=== PATIENT | female | born 1960 | race Caucasian/White ===

== ENCOUNTER → 2019-09-16 07:49 | Outpatient (BNVA) | payer MEDICARE, MEDICAID, SELFPAY | PROVIDERS: PCP Family Medicine; Visit Provider Anesthesiology | DX: M54.40 Lumbago with sciatica, unspecified side (principal); F17.210 Nicotine dependence, cigarettes, uncomplicated; Z79.891 Long term (current) use of opiate analgesic | CPT/HCPCS: 99213; 99214 ==

== ENCOUNTER → 2019-10-15 10:37 | Outpatient (BNVA) | payer MEDICARE, MEDICAID, SELFPAY | PROVIDERS: PCP Family Medicine; Visit Provider Anesthesiology | DX: G89.29 Other chronic pain (principal); M54.40 Lumbago with sciatica, unspecified side; M79.651 Pain in right thigh; M79.652 Pain in left thigh; F17.210 Nicotine dependence, cigarettes, uncomplicated; Z79.891 Long term (current) use of opiate analgesic | CPT/HCPCS: 99214 ==

== ENCOUNTER → 2019-12-12 10:44 | Outpatient (BNVA) | payer OTHER, MEDICAID, SELFPAY | PROVIDERS: PCP Family Medicine; Visit Provider Nurse Practitioner | DX: Z76.89 Persons encountering health services in other specified circumstances (principal) ==

== ENCOUNTER → 2020-02-11 10:00 | Outpatient (BNVA) | payer OTHER, MEDICAID, SELFPAY | PROVIDERS: PCP Family Medicine; Visit Provider Anesthesiology | DX: M54.41 Lumbago with sciatica, right side (principal); M54.42 Lumbago with sciatica, left side; F17.210 Nicotine dependence, cigarettes, uncomplicated; Z79.891 Long term (current) use of opiate analgesic; Z71.6 Tobacco abuse counseling | CPT/HCPCS: 99214 ==

== ENCOUNTER → 2021-12-06 13:30 | Outpatient (BNVA) | payer OTHER, MEDICAID, SELFPAY | PROVIDERS: PCP Family Medicine; Visit Provider Internal Medicine | DX: Z01.818 Encounter for other preprocedural examination (principal); K92.1 Melena; Z20.822 Contact with and (suspected) exposure to COVID-19 | CPT/HCPCS: 87635 ==

== ENCOUNTER 2021-12-12 06:15 | Day surgery (SDC) | payer OTHER, MEDICAID, SELFPAY ==
[2021-12-08 14:23] VITALS: BMI 23.2
[2021-12-12 06:41] VITALS: BP 135/99; PULSE 110; RESP 20; TEMP 36.1; O2SAT 96
[2021-12-12] MEDS: sodium chloride 0.9% 1,000 ML 30 ML IV (06:46)
--- NOTE | 2021-12-12 06:59 | ANES.PREANE2 ---
Pre-Anesthetic Assessment Height/Weight: Height 1.55 m Weight 55.792 kg Temp Pulse Resp BP Pulse Ox 97 F L 110 H 20 H 135/99 96 12/12/21 06:41 12/12/21 06:41 12/12/21 06:41 12/12/21 06:41 12/12/21 06:41 Preop Diagnosis: Nausea. Hematochezia. Post prandial diarrhea. Operation Date: 12/12/21 07:30 Proposed Procedures p [id number]/[id number]/k92.1(Not Applicable) - Scout Anderson MD s ColonoscOPY(Not Applicable) - Scout Anderson MD Familial anesthetic complications: none Was Clonidine taken within 24 hours: N/A Last intake: Intake Last Liquid Date 12/11/21 Last Liquid Time 22:00 Last Solid Date 12/10/21 Last Solid Time 12:00 Social Tobacco and No alcohol 0.5 pack(s) per day Exam alert, oriented x 3, clear to auscultation bilaterally and regular rate & rhythm Airway Submandibular: within normal limits Cervical ROM: within normal limits Mallampati: Class I Dentition: false Pulmonary Chronic Obstructive Pulmonary Disease, Cough and Shortness of Breath CV/HEM Hypertension and Myocardial Infarction None reported Hepatic None reported GI Gastroesophageal Reflux Disease Metabolic Hyperlipidemia Musc/skel Lower Back Pain, Osteoarthritis/DJD and Weakness Neuropsych Depression and Transient Ischemic Attack Anesthetic Plan ASA status: 3 Anesthesia: MAC Risk of > 500 ml blood loss (7ml/kg in children): No Medications/Allergies Home Medications Medication Instructions Recorded Confirmed Last Taken Type albuterol sulfate 2.5 mg INHALATION Q6H 09/05/19 12/08/21 12/10/21 History bupropion HCl 300 mg 24 hr tablet, 300 mg PO QAM 09/05/19 12/08/21 12/10/21 History extended release cyclobenzaprine 10 mg tablet 10 mg PO .HS tab 09/05/19 12/08/21 12/10/21 History fluticasone propionate 50 1 spray INTRANASAL BID PRN 09/05/19 12/08/21 12/10/21 History mcg/actuation nasal spray,suspension gabapentin 800 mg tablet 800 mg PO QID 30 Days #120 tab 12/12/19 12/08/21 12/10/21 Rx lorazepam 0.5 mg tablet 0.5 mg PO DAILY PRN 02/11/20 12/08/21 12/10/21 History ibuprofen 800 mg tablet 800 mg PO TID 11/14/21 12/08/21 12/10/21 History metoprolol tartrate 25 mg tablet 50 mg PO DAILY tab 11/14/21 12/12/21 12/11/21 09:00 History tramadol 50 mg tablet 50 mg PO BID PRN 11/14/21 12/08/21 12/11/21 History Allergies Allergy/AdvReac Type Severity Reaction Status Date / Time Penicillins Allergy Unknown Verified 11/24/21 13:23 aspirin AdvReac ABDOMINAL Verified 11/24/21 13:23 PAIN baclofen AdvReac DIZZINESS, Verified 11/24/21 13:23 NAUSEA, SHAKING, VOMITTING Sulfa (Sulfonamide AdvReac UNKNOWN Verified 11/24/21 13:23 Antibiotics) tetracycline AdvReac UNKNOWN Verified 11/24/21 13:23 Current Medications Generic Name Dose Route Start Last Admin Trade Name Freq PRN Reason Stop Dose Admin Sodium Chloride 1,000 mls @ 30 mls/hr 12/12/21 06:30 12/12/21 06:46 Sodium Chloride 0.9% IV 30 mls/hr .Q24H DAYA Administration PFSH Anesthesia Medical History COPD (chronic obstructive pulmonary disease) Encounter for long-term use of opiate analgesic Long-term use of high-risk medication Low back pain potentially associated with radiculopathy Low back pain with radiation Opioid contract exists Smoker Surgical History S/P appendectomy S/P total hysterectomy Family History Other Myocardial infarct Social History Smoking and tobacco status: current every day smoker cigarettes Packs smoked per day: 0.5 Alcohol intake: never Counseling given: Yes Data Anesthesia Cardiac Studies: No Data to Display
--- NOTE | 2021-12-12 07:13 | W.PM.OPSFHP ---
Same Day Surgery H&P Indication for Procedure/HPI DATE OF PROCEDURE: December 12, 2021 CHIEF COMPLAINT/INDICATIONFOR SURGICAL PROCEDURE: Hematochezia PREOP DIAGNOSIS: Nausea. Hematochezia. Post prandial diarrhea. PLANNED PROCEDURE: Operation Date: 12/12/21 07:30 Proposed Procedures p [id number](Not Applicable) - Scout Anderson MD s ColonoscOPY(Not Applicable) - Scout Anderson MD Medications/Allergies* Home Medications Medication Instructions Recorded Confirmed Type albuterol sulfate 2.5 mg INHALATION Q6H 09/05/19 12/08/21 History bupropion HCl 300 mg 24 hr tablet, 300 mg PO QAM 09/05/19 12/08/21 History extended release cyclobenzaprine 10 mg tablet 10 mg PO .HS tab 09/05/19 12/08/21 History fluticasone propionate 50 1 spray INTRANASAL BID PRN 09/05/19 12/08/21 History mcg/actuation nasal spray,suspension lorazepam 0.5 mg tablet 0.5 mg PO DAILY PRN 02/11/20 12/08/21 History ibuprofen 800 mg tablet 800 mg PO TID 11/14/21 12/08/21 History metoprolol tartrate 25 mg tablet 50 mg PO DAILY tab 11/14/21 12/12/21 History tramadol 50 mg tablet 50 mg PO BID PRN 11/14/21 12/08/21 History Allergies/Adverse Reactions Allergy/AdvReac Type Severity Reaction Status Date / Time Penicillins Allergy Unknown Verified 11/24/21 13:23 aspirin AdvReac ABDOMINAL Verified 11/24/21 13:23 PAIN baclofen AdvReac DIZZINESS, Verified 11/24/21 13:23 NAUSEA, SHAKING, VOMITTING Sulfa (Sulfonamide AdvReac UNKNOWN Verified 11/24/21 13:23 Antibiotics) tetracycline AdvReac UNKNOWN Verified 11/24/21 13:23 Current Medications: Generic Name Dose Route Start Last Admin Trade Name Freq PRN Reason Stop Dose Admin Sodium Chloride 1,000 mls @ 30 mls/hr 12/12/21 06:30 12/12/21 06:46 Sodium Chloride 0.9% IV 30 mls/hr .Q24H DAYA Administration Pertinent History/Comorbid Conditions* Medical History COPD (chronic obstructive pulmonary disease) Encounter for long-term use of opiate analgesic Long-term use of high-risk medication Low back pain potentially associated with radiculopathy Low back pain with radiation Opioid contract exists Smoker Surgical History (Updated 09/16/19 @ 08:08 by Jamel De Souza MD) S/P appendectomy S/P total hysterectomy Family History (Updated 09/05/19 @ 10:15 by JOSS Giang) Myocardial infarct Social History Smoking and tobacco status: current every day smoker cigarettes Packs smoked per day: 0.5 Alcohol intake: never Counseling given: Yes Pertinent Exam Findings alert, oriented x 3, clear to auscultation bilaterally, regular rate & rhythm, operative site marked and procedure specific exam findings Recommendations Surgery/Procedure today Coding Level of Care Code Acute Provider Relations Consultant for Naya Levi
[2021-12-12 08:09] VITALS: BP 140/94; PULSE 88; RESP 16; TEMP 36.1; O2SAT 96
--- NOTE | 2021-12-12 08:17 | ANE.PACU2 ---
Inpatient post-anesthesia follow up: Airway intact: Yes Vital signs: Temperature 97 F Pulse Rate 88 Respiratory Rate 16 Blood Pressure 140/94 Pulse Oximetry 96 Oxygen Delivery Me thod Room Air Oxygen Flow Rate Fraction of Inspir ed Oxygen Hydration adequate: Yes Nausea and vomiting: No Pain level: 1 Mental status: Baseline
[2021-12-12 08:27] VITALS: BP 129/76; PULSE 94; RESP 18; O2SAT 97
[2021-12-13 06:42] LABS: H. Pylori / CLO Test Negative
== END 2021-12-12 08:43 | disposition home or self-care (01) ==
PROVIDERS: PCP Family Medicine; Visit Provider Internal Medicine
PROC: 0DJ08ZZ Inspection of Upper Intestinal Tract, Via Natural or Artificial Opening Endoscopic (ICD-10-PCS; CPT 43235; principal; 2021-12-12 07:30)
PROC: 0DJD8ZZ Inspection of Lower Intestinal Tract, Via Natural or Artificial Opening Endoscopic (ICD-10-PCS; CPT 45378; 2021-12-12 07:30)
DX: K92.1 Melena (principal); R11.0 Nausea; R19.7 Diarrhea, unspecified; J44.9 Chronic obstructive pulmonary disease, unspecified; Z79.891 Long term (current) use of opiate analgesic; Z79.01 Long term (current) use of anticoagulants; Z79.899 Other long term (current) drug therapy; F17.210 Nicotine dependence, cigarettes, uncomplicated; Z82.49 Family history of ischemic heart disease and other diseases of the circulatory system; K44.9 Diaphragmatic hernia without obstruction or gangrene; K29.70 Gastritis, unspecified, without bleeding; K21.9 Gastro-esophageal reflux disease without esophagitis; E78.5 Hyperlipidemia, unspecified
CPT/HCPCS: 43239; 45378; 87077; J2704; J7030

== ENCOUNTER 2022-02-14 09:04 | Outpatient (CLI) | payer MEDICARE, MEDICAID, SELFPAY ==
--- NOTE | 2022-02-14 10:00 | NM_ITS ---
WS: [id number] NUCLEAR MEDICINE HIDA SCAN WITH GALLBLADDER EJECTION FRACTION HISTORY: Abdominal pain. COMPARISON: None available. TECHNIQUE: The patient was intravenously injected with 8.4 mCi of TC99m Mebrofenin. Immediate imaging over the right upper quadrant was followed by 5 minute image and additional images for a total of 60 minutes. Normal uptake of radiotracer throughout the liver. Activity identified in the gallbladder at 10 minutes and well distended by 60 minutes. Activity in the proximal small bowel was seen by 50 minutes. Good washout of the radiotracer from the liver by 60 minutes. The patient then drank 8 ounces of Ensure Plus. Ejection fraction at 60 minutes was 95%. Normal GB ej ection fraction is 35-75%. Post fatty meal symptoms: None. NM/NM hepatobiliary w phar* [id number] IMPRESSION: 1. Normal HIDA scan. 2. Normal gallbladder ejection fraction.
== END 2022-02-14 09:05 | disposition home or self-care (01) ==
LOC: RAD 09:09
PROVIDERS: PCP Family Medicine; Visit Provider Surgery
DX: R10.9 Unspecified abdominal pain (principal); K82.8 Other specified diseases of gallbladder
CPT/HCPCS: 78227; A9537

== ENCOUNTER → 2022-02-21 10:52 | Outpatient (BNVA) | payer MEDICARE, MEDICAID, SELFPAY | PROVIDERS: PCP Family Medicine; Visit Provider Surgery | DX: R10.11 Right upper quadrant pain (principal); K81.1 Chronic cholecystitis | CPT/HCPCS: 99214 ==

== ENCOUNTER 2022-03-02 06:22 | Day surgery (SDC) | payer MEDICARE, MEDICAID, SELFPAY ==
[2022-03-01 14:30] VITALS: BMI 24.5
[2022-03-02] VITALS (14 sets, daily range): BP systolic 114–175; BP diastolic 67–94; PULSE 59–75; RESP 9–18; TEMP 36.1–36.6; O2SAT 92–99
[2022-03-02] MEDS: sodium chloride 0.9% 1,000 ML 30 ML IV (06:43)
--- NOTE | 2022-03-02 07:02 | W.PM.OPSFHP ---
Same Day Surgery H&P Indication for Procedure/HPI DATE OF PROCEDURE: March 02, 2022 CHIEF COMPLAINT/INDICATIONFOR SURGICAL PROCEDURE: lap [place] PREOP DIAGNOSIS: Chronic cholecystitis PLANNED PROCEDURE: Operation Date: 03/02/22 07:00 Proposed Procedures p [id number] LAP CLEMENCIA R10.11(Not Applicable) - Marquez Barba MD Medications/Allergies* Home Medications Medication Instructions Recorded Confirmed Type albuterol sulfate 2.5 mg INHALATION Q6H 09/05/19 03/02/22 History bupropion HCl 300 mg 24 hr tablet, 300 mg PO QAM 09/05/19 03/02/22 History extended release cyclobenzaprine 10 mg tablet 10 mg PO .HS tab 09/05/19 03/02/22 History fluticasone propionate 50 1 spray INTRANASAL BID PRN 09/05/19 03/02/22 History mcg/actuation nasal spray,suspension lorazepam 0.5 mg tablet 0.5 mg PO DAILY PRN 02/11/20 03/02/22 History ibuprofen 800 mg tablet 800 mg PO TID 11/14/21 03/02/22 History metoprolol tartrate 25 mg tablet 50 mg PO DAILY tab 11/14/21 03/02/22 History tramadol 50 mg tablet 50 mg PO BID PRN 11/14/21 03/02/22 History Allergies/Adverse Reactions Allergy/AdvReac Type Severity Reaction Status Date / Time Penicillins Allergy Unknown Verified 03/02/22 06:34 aspirin AdvReac ABDOMINAL Verified 03/02/22 06:34 PAIN baclofen AdvReac DIZZINESS, Verified 03/02/22 06:34 NAUSEA, SHAKING, VOMITTING Sulfa (Sulfonamide AdvReac UNKNOWN Verified 03/02/22 06:34 Antibiotics) tetracycline AdvReac UNKNOWN Verified 03/02/22 06:34 Current Medications: Generic Name Dose Route Start Last Admin Trade Name Freq PRN Reason Stop Dose Admin Sodium Chloride 1,000 mls @ 30 mls/hr 03/02/22 06:45 03/02/22 06:43 Sodium Chloride 0.9% IV 03/03/22 06:44 30 mls/hr .Q24H DAYA Administration Pertinent History/Comorbid Conditions* Medical History (Updated 01/09/22 @ 11:02 by Marquez Barba MD) COPD (chronic obstructive pulmonary disease) Depression Gastritis Low back pain potentially associated with radiculopathy Surgical History (Updated 01/09/22 @ 11:02 by Marquez Barba MD) H/O esophagogastroduodenoscopy History of colonoscopy 2 weeks ago S/P appendectomy S/P total hysterectomy Family History (Updated 09/05/19 @ 10:15 by JOSS Giang) Myocardial infarct Social History Smoking and tobacco status: current every day smoker cigarettes Packs smoked per day: 0.5 Alcohol intake: never Counseling given: Yes Pertinent Exam Findings alert, oriented x 3 and regular rate & rhythm Recommendations Surgery/Procedure today Coding Level of Care Code Acute Budget Assistant for Naya Levi
[2022-03-02] MEDS: ciprofloxacin 400 MG/200 ML PREMIX 200 MG IV (07:07)
--- NOTE | 2022-03-02 07:18 | ANES.PREANE2 ---
Pre-Anesthetic Assessment Height/Weight: Height 1.55 m Weight 58.967 kg Temp Pulse Resp BP Pulse Ox 97.8 F 59 L 18 175/94 96 03/02/22 06:37 03/02/22 06:37 03/02/22 06:37 03/02/22 06:37 03/02/22 06:37 Preop Diagnosis: Chronic cholecystitis Operation Date: 03/02/22 07:00 Proposed Procedures p [id number] LAP CLEMENCIA R10.11(Not Applicable) - Marquez Barba MD Familial anesthetic complications: None Was Beta Adam taken within 24 hours: Yes Was Clonidine taken within 24 hours: N/A Last intake: Intake Last Liquid Date 03/01/22 Last Liquid Time 23:00 Last Solid Date 03/01/22 Last Solid Time 16:30 Social Tobacco and No alcohol Exam alert, oriented x 3, clear to auscultation bilaterally and regular rate & rhythm Airway Submandibular: within normal limits Cervical ROM: within normal limits Mallampati: Class II Dentition: false Pulmonary Chronic Obstructive Pulmonary Disease [facility]/skel Lower Back Pain chronic pain/opioid Neuropsych Cerebrovascular Accident Anesthetic Plan ASA status: 3 Anesthesia: General Medications/Allergies Home Medications Medication Instructions Recorded Confirmed Last Taken Type albuterol sulfate 2.5 mg INHALATION Q6H 09/05/19 03/02/22 03/01/22 History bupropion HCl 300 mg 24 hr tablet, 300 mg PO QAM 09/05/19 03/02/22 03/01/22 History extended release cyclobenzaprine 10 mg tablet 10 mg PO .HS tab 09/05/19 03/02/22 03/01/22 History fluticasone propionate 50 1 spray INTRANASAL BID PRN 09/05/19 03/02/22 03/01/22 History mcg/actuation nasal spray,suspension gabapentin 800 mg tablet 800 mg PO QID 30 Days #120 tab 12/12/19 03/02/22 03/01/22 Rx lorazepam 0.5 mg tablet 0.5 mg PO DAILY PRN 02/11/20 03/02/22 03/01/22 History ibuprofen 800 mg tablet 800 mg PO TID 11/14/21 03/02/22 03/01/22 History metoprolol tartrate 25 mg tablet 50 mg PO DAILY tab 11/14/21 03/02/22 03/01/22 History tramadol 50 mg tablet 50 mg PO BID PRN 11/14/21 03/02/22 03/01/22 History pantoprazole 40 mg tablet,delayed 40 mg PO DAILY #90 tab 12/12/21 03/02/22 03/01/22 Rx release hydrocodone 5 mg-acetaminophen 325 1 tab PO Q6H PRN #20 tab 03/02/22 Unknown Rx mg tablet Allergies Allergy/AdvReac Type Severity Reaction Status Date / Time Penicillins Allergy Unknown Verified 03/02/22 06:34 aspirin AdvReac ABDOMINAL Verified 03/02/22 06:34 PAIN baclofen AdvReac DIZZINESS, Verified 03/02/22 06:34 NAUSEA, SHAKING, VOMITTING Sulfa (Sulfonamide AdvReac UNKNOWN Verified 03/02/22 06:34 Antibiotics) tetracycline AdvReac UNKNOWN Verified 03/02/22 06:34 Current Medications Generic Name Dose Route Start Last Admin Trade Name Freq PRN Reason Stop Dose Admin Sodium Chloride 1,000 mls @ 30 mls/hr 03/02/22 06:45 03/02/22 06:43 Sodium Chloride 0.9% IV 03/03/22 06:44 30 mls/hr .Q24H DAYA Administration PFSH Anesthesia Medical History COPD (chronic obstructive pulmonary disease) Depression Gastritis Low back pain potentially associated with radiculopathy Surgical History (Updated 03/02/22 @ 07:06 by Marquez Barba MD) H/O esophagogastroduodenoscopy History of colonoscopy 2 weeks ago S/P appendectomy S/P total hysterectomy Status post laparoscopic cholecystectomy (03/02/22) Family History Other Myocardial infarct Social History Smoking and tobacco status: current every day smoker cigarettes Packs smoked per day: 0.5 Alcohol intake: never Counseling given: Yes Data Anesthesia Cardiac Studies: No Data to Display
[2022-03-02] MEDS: fentaNYL 50 mcg/mL INJ 2mL IVP ×2 (08:06→08:13)
--- NOTE | 2022-03-02 08:12 | PM.OP ---
Operative Report Date of procedure: March 02, 2022 Pre-op diagnosis: Chronic cholecystitis Post-op diagnosis: same Procedure done: Laparoscopic cholecystectomy Surgeon: Marquez Barba Anesthesia: General Condition: stable Disposition: PACU Procedure: The patient was taken to the operating room and was intubated under general anesthesia. After the antibiotic had been administered, the abdomen was prepped and draped in a sterile manner. Using a #15 blade, a 1 centimeter infraumbilical curvilinear incision was made and using an open Arben technique the peritoneal cavity was entered. A 10 millimeter port was placed and 15 millimeters of pneumoperitoneum was created. A 10 millimeter, 30 degrees scope was then introduced. Three 5 millimeter ports were placed in the epigastric, midclavicular and the anterior axillary line two fingerbreadths below the costal margin on the right side under the direct visualization. Ratcheted forceps were introduced into the lateral most port and was used to retract the fundus of the gallbladder cephalad and using forceps the infundibulum of the gallbladder was retracted laterally. Using L-hook cautery the peritoneum overlying the Calot's triangle was opened medially and laterally until the cystic duct and the cystic artery were skeletonized. Dissection was carried along the body of the gallbladder and after ensuring critical view of safety, 4 clips applied on the cystic duct and 3 clips applied on the cystic artery and cut leaving, 3 clips on the remaining portion of the duct and 2 clips on the remaining portion of the artery. The rest of the gallbladder was dissected off the liver using L-hook cautery. There was no bleeding or bile leaking noted from the gallbladder fossa and the clips appeared to be in place. An EndoCatch bag was introduced to remove the gallbladder. All the ports were removed under direct visualization and there was no bleeding noted from the port sites. The fascia of the umbilicus was closed using [id number] 0 Vicryl sutures and the subcutaneous tissue was approximated using 3-0 Vicryl sutures. The skin at all four ports were closed using 4-0 Monocryl and Dermabond. A total of 10 millimeters of 0.5% Marcaine was infiltrated around the port sites. The patient was stable throughout the procedure.
[2022-03-02] MEDS: HYDROmorphone 1 mg/mL INJ 1 mL 0.5 MG IVP (08:28)
[2022-03-02] MEDS: HYDROcodone-acetaminophen 5-325 mg Tablet 1 TAB PO (09:04)
--- NOTE | 2022-03-02 15:01 | ANE.PACU2 ---
Inpatient post-anesthesia follow up: Airway intact: Yes Vital signs: Temperature 97.0 F Pulse Rate 59 Respiratory Rate 16 Blood Pressure 142/73 Pulse Oximetry 92 Oxygen Delivery Me thod Room Air Oxygen Flow Rate 2 Fraction of Inspir ed Oxygen Hydration adequate: Yes Nausea and vomiting: No Pain level: 3 Mental status: Baseline
== END 2022-03-02 09:35 | disposition home or self-care (01) ==
PROVIDERS: PCP Family Medicine; Visit Provider Surgery
PROC: 0FT44ZZ Resection of Gallbladder, Percutaneous Endoscopic Approach (ICD-10-PCS; CPT 47562; principal; 2022-03-02 07:00)
DX: K81.1 Chronic cholecystitis (principal); K21.9 Gastro-esophageal reflux disease without esophagitis; J44.9 Chronic obstructive pulmonary disease, unspecified; Z86.73 Personal history of transient ischemic attack (TIA), and cerebral infarction without residual deficits; F17.210 Nicotine dependence, cigarettes, uncomplicated
CPT/HCPCS: 47562; 88304; J0744; J1100; J1170; J2250; J2405; J2704; J2710; J3010; J3490; J7030

== ENCOUNTER → 2022-03-15 08:49 | Outpatient (BNVA) | payer MEDICARE, MEDICAID, SELFPAY | PROVIDERS: PCP Family Medicine; Visit Provider Surgery | DX: Z98.890 Other specified postprocedural states; Z90.49 Acquired absence of other specified parts of digestive tract; K92.1 Melena | CPT/HCPCS: 99024; 99213 ==